=== PATIENT | male | born 2000 | race Caucasian/White ===

== ENCOUNTER 2025-02-24 04:07 | Emergency (ER) | payer SELFPAY ==
--- NOTE | 2025-02-24 04:11 | W.ED.GENAD ---
Discharge Plan Disposition Patient Disposition: Home Condition: Improving Discharge Details Clinical Impression: Nausea, vomiting and diarrhea Primary Care Provider: Unknown,Unknown ED Provider: James Hawk and New Rx's Prescriptions: New ondansetron 4 mg tablet,disintegrating 4 mg PO Q8H PRNQty: 10 0RF Discharge Instructions Instructions: Diarrhea, Adult ED, Nausea and Vomiting, Adult ED Additional Instructions: You were seen for vomiting and diarrhea. Your heart rate improved with the fluids. A prescription for ondansetron to help control nausea and vomiting has been sent to pharmacy. Would recommend a clear liquid diet over the next 24 hours may advance slowly on bland diet as tolerated. Follow-up with primary care end of week if you are not improving. Return to ED for fever, persistent vomiting, abdominal pain, bloody diarrhea, other concerns. HPI General Mode of arrival: ambulatory. Date/Time Provider Initiated Documentation: 02/24/25 04:11. Limitations to Documentation: no limitations. Information obtained by: patient and RN notes reviewed. HPI Narrative: Patient presents to ED with complaint of nausea, vomiting, diarrhea for the last 2 days. No real belly pain although he gets cramps prior to getting the diarrhea. Diarrhea described as watery not bloody. Denies any fever. Denies any URI type symptoms. He is still making urine. Reports not being able to keep anything down at this point. Related Data Home Medications ?Medication ?Instructions ?Recorded ?Confirmed ondansetron 4 mg disintegrating 4 mg PO Q8H PRN #10 tabs 02/24/25 tablet Previous Rx's ?Medication ?Instructions ?Recorded ondansetron 4 mg disintegrating 4 mg PO Q8H PRN #10 tabs 02/24/25 tablet Allergies Allergy/AdvReac Type Severity Reaction Status Date / Time No Known Allergies Allergy Unverified 02/24/25 04:19 Exam Narrative Exam Narrative: Const: Obese male in NAD. VS per triage. HEENT: NC/AT. Normal facial exam. Neck: Supple. Trachea midline. Lungs: Normal respiratory effort. GI: Soft/ND/NT. Neuro: A+O x 3. Normal speech, mentation. Cranial nerves II - XII grossly intact. No gross motor or sensory deficit. Medical Decision Making Patient presenting to ED with vomiting and diarrhea for the last 2 days. He has had no fever and no persistent belly pain just cramps prior to diarrhea. Diarrhea was nonbloody. He is tachycardic. Abdomen is benign. Most likely a gastroenteritis type presentation. Will place IV and give ondansetron as well as fluids. Check abdominal labs and reevaluate. Patient doing better after fluids and ondansetron. Continues to have no abdominal pain. Has had no diarrhea here. Tolerated cass arelis. Laboratory studies significant for white count of 20,000 but normal differential. Chemistries, liver function, kidney function are all normal. White count likely related to a viral gastroenteritis as well as possible stress reaction in a young adult. I think he is safe for discharge home and does not require imaging at this time. Will provide prescription for ondansetron ODT for recurrent nausea vomiting. Otherwise clear liquids bland diet over the next 24 to 48 hours. Follow-up with PCP if not improving by end of week. Return precautions provided. Lab Data Lab results reviewed: Yes I reviewed the patient's lab results. Lab results narrative: see [facility] All Active Problems (Updated 02/24/25 @ 06:14 by James Hawk MD) Nausea, vomiting and diarrhea (Acute) Social History Smoking/Tobacco Use Status: Never Smoking risk assessment performed?: Yes Alcohol Intake: never Substance use type: does not use Housing: house
[2025-02-24 04:15] VITALS: BP 141/93; PULSE 119; RESP 20; TEMP 36.8; O2SAT 94
[2025-02-24] MEDS: Ondansetron 4 MG/2 ML VIAL IVP (04:29)
[2025-02-24] MEDS: Normal Saline 1,000 ML 1000 ML IV (04:29)
[2025-02-24 04:46] LABS: Abs Immature Grans 0.09 10^3/uL (0.0-0.06); HCT 48.5 % (40.0-50.0); HGB 16.4 g/dL (13.5-17.5); Immature Grans % 0.4 %; MCH 29.1 pg (27.0-33.0); MCHC 33.8 % (32.0-36.0); MCV 86 fL (80-95); MPV 11.8 fL (8.0-11.0); Platelet Count 246 10^3/uL (130-400); RBC 5.63 10^6/uL (4.36-5.78); RDW 12.4 % (11.8-14.1); RDW-SD 38.7 fL; WBC 20.40 10^3/uL (4.4-10.8)
[2025-02-24 05:07] LABS: ALT 47 U/L (16-63); AST 32 U/L (15-37); Albumin 4.6 g/dL (3.4-5.0); Alkaline Phosphatase 93 U/L (46-116); Anion Gap 12.1 mmol/L (3-11); BUN 14 mg/dL (7-18); Bilirubin, Total 0.5 mg/dL (0.2-1.0); CO2 24.9 mmol/L (21.0-32.0); Calcium 9.2 mg/dL (8.5-10.1); Chloride 103 mmol/L (98-107); Estimated GFR 87.69 (mL/min/1.73m2); Glucose 105 mg/dL (74-106); Lipase 17 U/L (<78); Magnesium 2.0 mg/dL (1.8-2.4); Potassium 4.7 mmol/L (3.5-5.1); Sodium 140 mmol/L (136-145); Total Protein 8.5 g/dL (6.4-8.2)
[2025-02-24 06:09] VITALS: BP 108/51; PULSE 92; RESP 16; O2SAT 97
[2025-02-24 06:28] VITALS: BP 104/42; PULSE 89; RESP 16; O2SAT 99
== END 2025-02-24 06:31 | disposition home or self-care (01) ==
PROVIDERS: Emergency Provider Emergency Medicine
DX: R11.2 Nausea with vomiting, unspecified (principal); R19.7 Diarrhea, unspecified
CPT/HCPCS: 99284; 99283; 96374; 80053; 83690; 96361; 83735; 85025; J2405